=== PATIENT | male | born 1945 | race Caucasian/White ===

== ENCOUNTER 2017-09-25 07:03 | Day surgery (SDC) | payer MEDICARE ==
[~2017-09-25] VITALS: Ht 172.7 cm; Wt 109.8 kg
[~2017-09-25 07:03] MED LIST: AMIO200 PO; ASPI81CH PO; CHOL10002 PO; Coumadin2.5 MG PO; DILT120 PO; DOCU100 PO; DOXE150 PO; FLUV40 PO; HYDCHL25 PO; Hydrochlorothia25 MG PO; METO50 PO; Multivitamin1 EAC2 PO; NIFE30ER PO; Norco 5-325 Ta1 EACH PO; OXYACE5T PO; PROP60 PO; VALS80 PO; WARF2.5 PO; WARF3 PO
== END 2017-09-25 22:49 | disposition home or self-care (01) ==
LOC: ORSCMMR 07:03 → ORD 08:00 → ORSCMMR 08:00
PROVIDERS: Internal Medicine Gastroenterology
PROC: 0DJD8ZZ Inspection of Lower Intestinal Tract, Via Natural or Artificial Opening Endoscopic (ICD-10-PCS; principal; 2017-09-25 08:00)
DX: Z12.11 Encounter for screening for malignant neoplasm of colon (principal); Z86.010 Personal history of colon polyps; Z87.11 Personal history of peptic ulcer disease; Z80.0 Family history of malignant neoplasm of digestive organs; I48.0 Paroxysmal atrial fibrillation; I10 Essential (primary) hypertension; E78.00 Pure hypercholesterolemia, unspecified; Z79.01 Long term (current) use of anticoagulants; Z79.899 Other long term (current) drug therapy
CPT/HCPCS: J7120

== ENCOUNTER 2018-03-26 12:47 | Day surgery (SDC) | payer MEDICARE ==
[~2018-03-26] VITALS: Ht 200.7 cm; Wt 105.6 kg
--- NOTE | 2018-03-26 14:07 | NUR ---
03/26/18 1407 Taina Patel UNDER KNEES
--- NOTE | 2018-03-26 16:05 | NUR ---
03/26/18 1605 Belen Boyce LATE ENTRY: PT ARRIVED TO SDU DIRECTLY FROM OR DUE TO ISOLATION.
== END 2018-03-26 17:05 | disposition home or self-care (01) ==
LOC: ORSCSDS 12:47
PROVIDERS: Surgery
PROC: BF031ZZ Plain Radiography of Gallbladder and Bile Ducts using Low Osmolar Contrast (ICD-10-PCS; principal; 2018-03-26 14:00)
PROC: 0WUF0JZ Supplement Abdominal Wall with Synthetic Substitute, Open Approach (ICD-10-PCS; principal; 2018-03-26 14:00)
PROC: 0FT44ZZ Resection of Gallbladder, Percutaneous Endoscopic Approach (ICD-10-PCS; principal; 2018-03-26 14:00)
DX: K80.70 Calculus of gallbladder and bile duct without cholecystitis without obstruction (principal); K82.4 Cholesterolosis of gallbladder; K43.6 Other and unspecified ventral hernia with obstruction, without gangrene; I10 Essential (primary) hypertension; I25.10 Atherosclerotic heart disease of native coronary artery without angina pectoris; Z87.891 Personal history of nicotine dependence
CPT/HCPCS: 74300; 88304; C1729; C1781; J0690; J1100; J1885; J2250; J2405; J2765; J3010; J7120

== ENCOUNTER 2021-02-08 07:11 | Day surgery (SDC) | payer MEDICARE ==
[~2021-02-08] VITALS: Ht 195.6 cm; Wt 97.4 kg
[2021-02-08] MEDS ORDERED: AMIODARONE HCL100 M3 PO (07:51)
[2021-02-08 09:09] LABS: International Normalized Ratio 1.1; Prothrombin Time Results 11.5 Sec (9.7-11.5)
--- NOTE | 2021-02-08 10:07 | NUR ---
02/08/21 Horacio Navarrete RED MARKINGS NOTED ON RIGHT LOWER ABDOMEN PRE OPERATIVELY IN THE OR. AWARE, NO NEW ORDERS
--- NOTE | 2021-02-08 12:00 | NUR ---
PT ABLE TO DRESS INDEPENDETLY, DENIES PAIN OR NAUSEA, DRESSING TO R GROIN CDI. PT TOLERATING PO INTAKE. IV DC'D, DRESSING APPLIED. SITE WNL. D/C INSTRUCTIONS GIVEN, PT DENIES QUESTIONS. PT OUT TO CAR VIA WC W/ CAFE OR RESTAURANT MANAGER.
== END 2021-02-09 12:00 | disposition home or self-care (01) ==
LOC: ORSCMMR 07:11 → ORD 08:45 → ORSCMMR 02-09 12:00
PROVIDERS: Student in an Organized Health Care Education/Training Program; Surgery
PROC: 0YU50JZ Supplement Right Inguinal Region with Synthetic Substitute, Open Approach (ICD-10-PCS; principal; 2021-02-08 08:45)
DX: K40.90 Unilateral inguinal hernia, without obstruction or gangrene, not specified as recurrent (principal); I48.91 Unspecified atrial fibrillation; Z79.01 Long term (current) use of anticoagulants; I10 Essential (primary) hypertension; Z87.891 Personal history of nicotine dependence; K21.9 Gastro-esophageal reflux disease without esophagitis; N18.9 Chronic kidney disease, unspecified; Z86.73 Personal history of transient ischemic attack (TIA), and cerebral infarction without residual deficits; E11.9 Type 2 diabetes mellitus without complications; Z79.899 Other long term (current) drug therapy; Z85.46 Personal history of malignant neoplasm of prostate
CPT/HCPCS: 82947; 85610; C1781; J0690; J1100; J1885; J2370; J2405; J2704; J3010; J7120

== ENCOUNTER 2021-07-10 08:31 | Emergency (ER) | payer MEDICARE ==
[~2021-07-10] VITALS: Ht 203.2 cm; Wt 99.5 kg
[~2021-07-10 08:31] MED LIST changes: +AMIODARONE HCL100 M3 PO
== END 2021-07-10 09:33 | disposition home or self-care (01) ==
LOC: ER 08:31
DX: S80.871A Other superficial bite, right lower leg, initial encounter (principal); W57.XXXA Bitten or stung by nonvenomous insect and other nonvenomous arthropods, initial encounter; I48.91 Unspecified atrial fibrillation; N18.9 Chronic kidney disease, unspecified; Z79.01 Long term (current) use of anticoagulants; Z79.899 Other long term (current) drug therapy; Z87.891 Personal history of nicotine dependence
CPT/HCPCS: A9270

== ENCOUNTER → 2021-10-20 | Outpatient (CLI) | payer MEDICARE ==
[2021-10-20 17:49] LABS: BASOPHILS ABSOLUTE AUTO 0.06 K/mm3 (0.00-0.23); BASOPHILS PERCENT AUTO 1 % (0-2); EOSINOPHILS ABSOLUTE AUTO 0.11 K/mm3 (0.00-0.68); EOSINOPHILS PERCENT AUTO 2 % (0-6); Hematocrit 41.7 % (37.0-53.0); Hemoglobin 13.7 g/dL (13.5-17.5); IMMATURE GRAN ABSOLUTE AUTO 0.01 K/mm3 (0.00-0.10); IMMATURE GRAN PERCENT AUTO 0 % (0-1); LYMPHOCYTES ABSOLUTE AUTO 1.59 K/mm3 (0.84-5.20); LYMPHOCYTES PERCENT AUTO 30 % (21-46); MONOCYTES ABSOLUTE AUTO 0.57 K/mm3 (0.16-1.47); MONOCYTES PERCENT AUTO 11 % (4-13); Mean Corpuscular HGB 31.1 pg (26.0-34.0); Mean Corpuscular HGB Conc 32.9 g/dL (31.5-36.5); Mean Corpuscular Volume 95 fL (80-100); Mean Platelet Volume 12.8 fL (9.1-12.4); NEUTROPHILS ABSOLUTE AUTO 2.99 K/mm3 (1.96-9.15); NEUTROPHILS PERCENT AUTO 56 % (41-73); Platelet Count 144 K/mm3 (150-400); RDW Coefficient Variation 12.8 % (11.7-14.2); RDW Standard Deviation 45.1 fL (35.1-46.3); Red Blood Cell Count 4.41 M/mm3 (4.30-5.90); White Blood Cell Count 5.33 K/mm3 (4.00-11.30)
[2021-10-20 17:55] LABS: Alanine Aminotransfer (ALT/SGP 20 U/L (12-78); Albumin, Blood 3.8 g/dL (3.4-5.0); Albumin/Globulin Ratio 1.3 (0.8-1.8); Alk Phos 65 U/L (50-136); Anion Gap 4 mmol/L (6-16); Aspartate Aminotrans (AST/SGOT 17 U/L (12-37); Bilirubin, Total 1.8 mg/dL (0.1-1.0); Blood Urea Nitrogen 28 mg/dL (8-24); Bun/Creatinine Ratio 22.8 (12.0-20.0); CHOL/HDL RATIO 3.4; CO2, Blood 29 mmol/L (21-32); Calcium, Blood 9.7 mg/dL (8.5-10.1); Chloride, Blood 105 mmol/L (98-108); Cholesterol 186 mg/dL (50-200); Creatinine, Blood 1.23 mg/dL (0.60-1.20); Glomerular Filtration Rate 60 (60-); Glucose, Blood 105 mg/dL (70-99); HDL Cholesterol 54 mg/dL (>39); LDL/HDL RATIO 2.1; Low Density Lipoprotein Chol 112 mg/dL (0-110); Potassium, Blood 4.1 mmol/L (3.5-5.5); Sodium, Blood 138 mmol/L (136-145); Total Protein, Blood 6.8 g/dL (6.4-8.2); Triglycerides 100 mg/dL (30-160); Very Low Density Lipoprot Chol 20 mg/dL (6-32)
== END | disposition home or self-care (01) ==
LOC: LAB SHORT 13:28 → LAB 13:28
PROVIDERS: Nurse Practitioner Family
DX: I10 Essential (primary) hypertension (principal); E78.00 Pure hypercholesterolemia, unspecified; R73.03 Prediabetes
CPT/HCPCS: 80053; 80061; 83036; 85025

== ENCOUNTER → 2022-06-04 | Outpatient (CLI) | payer MEDICARE | END | disposition home or self-care (01) | LOC: LAB 11:44 → LAB SHORT 11:44 | DX: D48.5 Neoplasm of uncertain behavior of skin (principal) | CPT/HCPCS: 88305 ==

== ENCOUNTER 2022-12-20 17:15 | Emergency (ER) | payer MEDICARE ==
[~2022-12-20] VITALS: Ht 200.7 cm; Wt 96.6 kg
[2022-12-20 17:23] VITALS: BP 140/97
[2022-12-20 18:08] LABS: BASOPHILS ABSOLUTE AUTO 0.06 K/mm3 (0.00-0.23); BASOPHILS PERCENT AUTO 1 % (0-2); EOSINOPHILS ABSOLUTE AUTO 0.15 K/mm3 (0.00-0.68); EOSINOPHILS PERCENT AUTO 2 % (0-6); Hemoglobin 13.8 g/dL (13.5-17.5); IMMATURE GRAN ABSOLUTE AUTO 0.01 K/mm3 (0.00-0.10); IMMATURE GRAN PERCENT AUTO 0 % (0-1); LYMPHOCYTES ABSOLUTE AUTO 1.99 K/mm3 (0.84-5.20); LYMPHOCYTES PERCENT AUTO 28 % (21-46); MONOCYTES ABSOLUTE AUTO 0.75 K/mm3 (0.16-1.47); MONOCYTES PERCENT AUTO 11 % (4-13); Mean Corpuscular HGB 31.9 pg (26.0-34.0); Mean Corpuscular HGB Conc 34.5 g/dL (31.5-36.5); Mean Corpuscular Volume 93 fL (80-100); Mean Platelet Volume 10.2 fL (9.1-12.4); NEUTROPHILS ABSOLUTE AUTO 4.16 K/mm3 (1.96-9.15); NEUTROPHILS PERCENT AUTO 59 % (41-73); Platelet Count 158 K/mm3 (150-400); RDW Coefficient Variation 12.8 % (11.7-14.2); RDW Standard Deviation 43.2 fL (35.1-46.3); Red Blood Cell Count 4.32 M/mm3 (4.30-5.90); White Blood Cell Count 7.12 K/mm3 (4.00-11.30)
[2022-12-20 18:24] LABS: Albumin, Blood 3.8 g/dL (3.4-5.0); Albumin/Globulin Ratio 1.1 (0.8-1.8); Bilirubin, Total 1.4 mg/dL (0.1-1.0); Bun/Creatinine Ratio 18.9 (12.0-20.0); Calcium, Blood 9.4 mg/dL (8.5-10.1); Creatinine, Blood 1.32 mg/dL (0.60-1.20); Globulin, Blood 3.4 g/dL (2.2-4.0); Potassium, Blood 3.8 mmol/L (3.5-5.5); Total Protein, Blood 7.2 g/dL (6.4-8.2)
== END 2022-12-20 19:53 | disposition home or self-care (01) ==
LOC: ER 17:15
PROVIDERS: Student in an Organized Health Care Education/Training Program
DX: M79.662 Pain in left lower leg (principal); I48.91 Unspecified atrial fibrillation; N18.9 Chronic kidney disease, unspecified; Z79.899 Other long term (current) drug therapy; Z79.01 Long term (current) use of anticoagulants; Z87.891 Personal history of nicotine dependence
CPT/HCPCS: 80053; 85025; 85730; 93971; 99283-25

== ENCOUNTER 2024-05-18 07:19 | Inpatient (IN) | payer MEDICARE ==
[~2024-05-18] VITALS: Ht 188 cm; Wt 86.2 kg
[2024-05-18] VITALS (12 sets, daily range): BP systolic 100–131; BP diastolic 50–85
[~2024-05-18 07:19] MED LIST changes: -AMIODARONE HCL100 M3 PO; +Amiodarone HCl200 MG PO
[2024-05-18] MEDS ORDERED: NS 1,000 ML IV SCH (10:25)
[2024-05-18] MEDS ORDERED: Morphine Sulfate 4 MG/1 ML Injection IV ONE ×2 (10:25→12:50)
[2024-05-18 10:53] LABS: BASOPHILS ABSOLUTE AUTO 0.02 K/mm3 (0.00-0.23); BASOPHILS PERCENT AUTO 0 % (0-2); EOSINOPHILS ABSOLUTE AUTO 0.01 K/mm3 (0.00-0.68); EOSINOPHILS PERCENT AUTO 0 % (0-6); Hematocrit 37.2 % (37.0-53.0); Hemoglobin 12.8 g/dL (13.5-17.5); IMMATURE GRAN ABSOLUTE AUTO 0.02 K/mm3 (0.00-0.10); IMMATURE GRAN PERCENT AUTO 0 % (0-1); LYMPHOCYTES ABSOLUTE AUTO 0.64 K/mm3 (0.84-5.20); LYMPHOCYTES PERCENT AUTO 7 % (21-46); MONOCYTES ABSOLUTE AUTO 0.82 K/mm3 (0.16-1.47); MONOCYTES PERCENT AUTO 9 % (4-13); Mean Corpuscular HGB 31.8 pg (26.0-34.0); Mean Corpuscular HGB Conc 34.4 g/dL (31.5-36.5); Mean Corpuscular Volume 92 fL (80-100); Mean Platelet Volume 9.7 fL (9.1-12.4); NEUTROPHILS ABSOLUTE AUTO 7.89 K/mm3 (1.96-9.15); NEUTROPHILS PERCENT AUTO 84 % (41-73); Platelet Count 177 K/mm3 (150-400); RDW Coefficient Variation 13.2 % (11.7-14.2); RDW Standard Deviation 44.8 fL (35.1-46.3); Red Blood Cell Count 4.03 M/mm3 (4.30-5.90)
[2024-05-18 11:00] LABS: International Normalized Ratio 1.2; Prothrombin Time Results 12.7 Sec (9.7-11.5)
[2024-05-18 11:13] LABS: Albumin, Blood 3.3 g/dL (3.4-5.0); Bilirubin, Total 2.3 mg/dL (0.1-1.0); Calcium, Blood 9.4 mg/dL (8.5-10.1); Creatinine, Blood 1.09 mg/dL (0.60-1.20); Globulin, Blood 3.2 g/dL (2.2-4.0); Potassium, Blood 3.3 mmol/L (3.5-5.5); Total Protein, Blood 6.5 g/dL (6.4-8.2)
[2024-05-18] MEDS ORDERED: Piperacillin/Tazobactam Sod 3.375 GM in NS 100 ML IV ONE (11:35)
[2024-05-18 12:22] LABS: Source, Urine Clean Catch
[2024-05-18 12:29] LABS: Appearance, Urine Clear (Clear); Bilirubin, Urine Neg (Neg); Blood, Urine 1+ (Neg); Color, Urine Yellow (P-Yellow); Glucose Qualitative, Urine Neg (Neg); Ketones, Urine Neg (Neg); Leukocyte Esterase, Urine Neg (Neg); Nitrite, Urine Neg (Neg); Protein, Urine 2+ (Neg); Specific Gravity, Urine 1.015 (1.003-1.022); Urobilinogen, Urine 2+ (Normal)
[2024-05-18] MEDS ORDERED: Famotidine 10 MG/ML 2ML Vial IV ONE (12:35)
[2024-05-18] MEDS ORDERED: FentaNYL Citrate 50 MCG/ML 2 ML Injection IV ONE (13:10)
[2024-05-18 13:46] LABS: Bacteria Not Seen /hpf; Red Blood Cells, Urine 0-2 /hpf (0-2); Squamous Epithelial Cells Not Seen /hpf (Few); White Blood Cells, Urine 0-2 /hpf (0-5)
[2024-05-18] MEDS ORDERED: NS KCl 20mEq 1,000 ML IV SCH (13:50)
[2024-05-18] MEDS ORDERED: Bupivacaine 0.5% HCl 5 MG/ML 30MLVIAL ONE (14:12)
--- NOTE | 2024-05-18 14:40 | NUR ---
PT RECENTLY HERE BY GARRETT FROM ER. Patient confirms NPO status and agrees with scheduled surgery. History, Chart, Medications and Allergies reviewed before start of procedure.Pre-Op teaching done. Pt verbalizes understanding. Lungs clear T/O to Auscultation.
[2024-05-18] MEDS ORDERED: HYDROmorphone HCl/Pf 1MG SYR IV PRN (14:55)
[2024-05-18] MEDS ORDERED: Morphine Sulfate 4 MG/1 ML Injection IV PRN (14:55)
[2024-05-18] MEDS ORDERED: Lactated Ringer's 1,000 ML IV SCH (15:00)
[2024-05-18] MEDS ORDERED: Ondansetron HCl 2 MG / ML 2ML Vial IV PRN (15:00)
[2024-05-18] MEDS ORDERED: FentaNYL Citrate 50 MCG/ML 2 ML Injection IV PRN ×3 (15:00→16:40)
[2024-05-18] MEDS ORDERED: Lidocaine HCl 1% 5 ML SYR INJ ONE (15:00)
[2024-05-18] MEDS ORDERED: propofoL 20 ML IV ONE (15:06)
[2024-05-18] MEDS ORDERED: FentaNYL Citrate 50 MCG/ML 2 ML Injection ONE (15:07)
[2024-05-18] MEDS ORDERED: Rocuronium Bromide 10 MG/ML 5ML Injection IV ONE (15:12)
[2024-05-18] MEDS ORDERED: Phenylephrine HCl 100 MCG/ML-NS 10MLSYR (1MG/10ML) ONE (15:12)
[2024-05-18] MEDS ORDERED: SuccINYLCHOLINE Chloride 100 MG/5 ML 5MLSYR ONE (15:12)
[2024-05-18] MEDS ORDERED: Ondansetron HCl 2 MG / ML 2ML Vial ONE (15:13)
[2024-05-18] MEDS ORDERED: Dexamethasone Sod Phos 10 MG/ML 1ML VIAL ONE (15:13)
--- NOTE | 2024-05-18 15:14 | NUR ---
PT GLASSES TO PACU IN SMALL BAG WITH NAME TAG ON IT.
[2024-05-18] MEDS ORDERED: Phenylephrine HCl 10mg/ml 1 ml Vial ONE (15:19)
[2024-05-18] MEDS ORDERED: ePHEDrine Sulfate 50 MG/ML 1ML Injection ONE (15:27)
[2024-05-18] MEDS ORDERED: Sugammadex Sodium 200 MG/2ML SDV (100 MG/ML) ONE (16:03)
[2024-05-18] MEDS ORDERED: HYDROcodone 5-APAP 325 TAB PO PRN (16:40)
[2024-05-18] MEDS ORDERED: Piperacillin/Tazobactam Sod 3.375 GM in NS 100 ML IV SCH (18:00)
[2024-05-18] MEDS ORDERED: Warfarin Sodium 1 MG Tab PO ONE (18:50)
--- NOTE | 2024-05-18 19:21 | NUR ---
POST OP/SHIFT SUMMARY PT IS POD0 FOR LAP APPY. A/OX4, PT IS DROWSY STILL FROM ANESTHESIA, EDUCATED PT TO CALL FOR ASSISTANCE W/ AMBULATION AND PT AGREES. LAP SITES X3 C/D/I. PT HAS VOIDED POST OP. DENIES PAIN/NAUSEA. TOLERATING SNACKS AND FLUIDS. VSS. 2LNC. CALL LIGHT IN REACH, REPORT TO JOSEPHINE MO.
[2024-05-18] MEDS ORDERED: Propranolol HCL 60 MG CAPCR PO SCH (21:00)
[2024-05-18] MEDS ORDERED: Docusate Sodium 100 MG Cap PO SCH (21:00)
[2024-05-18] MEDS ORDERED: Amiodarone HCl 200 MG Tab PO SCH (21:00)
[2024-05-19 04:10] VITALS: BP 107/72
[2024-05-19 04:29] LABS: Hematocrit 33.5 % (37.0-53.0); Hemoglobin 11.3 g/dL (13.5-17.5); Mean Corpuscular HGB 32.5 pg (26.0-34.0); Mean Corpuscular HGB Conc 33.7 g/dL (31.5-36.5); Mean Corpuscular Volume 96 fL (80-100); Platelet Count 159 K/mm3 (150-400); RDW Coefficient Variation 13.7 % (11.7-14.2); RDW Standard Deviation 48.5 fL (35.1-46.3); Red Blood Cell Count 3.48 M/mm3 (4.30-5.90); White Blood Cell Count 13.46 K/mm3 (4.00-11.30)
[2024-05-19 04:49] LABS: International Normalized Ratio 1.34
[2024-05-19 05:12] LABS: Bun/Creatinine Ratio 22.3 (12.0-20.0); Calcium, Blood 8.4 mg/dL (8.5-10.1); Creatinine, Blood 1.12 mg/dL (0.60-1.20); Potassium, Blood 3.7 mmol/L (3.5-5.5)
--- NOTE | 2024-05-19 05:29 | NUR ---
SHIFT SUMMARY NOC PT A/O X 4. PLEASANT AND COOPERATIVE WITH CARE. POST OP VSS. PT POST OP DAY 1 APPENDECTOMY WITH 3 LAP SITES WITH STER STRIPS IN PLACE C/D/I. PT HAD C/O OF PAIN X 1 AND MEDICATED PER EMAR. PT GIVEN FIRST DOSE OF WARFARIN AT BEDTIME. PT HAS NS KCL 29 MEQ INFUSING @ 100 ML/HR FOR ELECTROLYTE REPLACEMENT AND IV ABX. PT USING BEDSIDE URINAL INDEPENDENTLY. PT CURRENTLY RESTING WITH BED IN LOWEST POSITION, AND CALL LIGHT WITHIN REACH.
[2024-05-19 07:12] VITALS: BP 103/70
[2024-05-19] MEDS ORDERED: Multivitamins 1 Tab PO SCH (09:00)
[2024-05-19] MEDS ORDERED: HydroCHLOROthiazide 25 mg Tab PO SCH (09:00)
[2024-05-19] MEDS ORDERED: Losartan Potassium 50 MG Tab PO SCH (09:00)
[2024-05-19] MEDS ORDERED: Warfarin Sodium 2.5 MG Tab PO SCH (09:00)
[2024-05-19] MEDS ORDERED: Propranolol HCL 60 MG CAPCR PO SCH (09:00)
[2024-05-19] MEDS ORDERED: Amiodarone HCl 200 MG Tab PO SCH (09:00)
[2024-05-19] MEDS ORDERED: Polyethylene Glycol 3350 17 gm PO SCH (09:00)
[2024-05-19] MEDS ORDERED: JANTOVEN1 M2 PO (11:50)
[2024-05-19] MEDS ORDERED: TAMSULOSIN HCL0.4 M1 PO (11:50)
[2024-05-19] MEDS ORDERED: AMLODIPINE BESY10 MG PO (11:50)
[2024-05-19 15:32] VITALS: BP 119/83
[2024-05-19] MEDS ORDERED: Tamsulosin HCl 0.4 MG Cap PO ONE (17:00)
[2024-05-19] MEDS ORDERED: Sod Phosphate/Sod Biphosphate 132 ML BTL PR PRN (17:05)
[2024-05-19] MEDS ORDERED: Polyethylene Glycol 3350 17 gm PO PRN (17:15)
[2024-05-19] MEDS ORDERED: Warfarin Sodium 1 MG Tab PO SCH ×2 (18:00)
[2024-05-19] MEDS ORDERED: Warfarin Sodium 2 MG Tab PO SCH (18:00)
--- NOTE | 2024-05-19 18:22 | NUR ---
SHIFT SUMMARY PT IS POD1 FOR LAP APPY. A/OX4, IND IN ROOM. PAIN MANAGEABLE W/ PAIN MEDS PER EMAR. TOLERATING FLUIDS AND REG DIET. URINE IS PINK TINGED AND CLOUDY, DR. MEEKS AWARE AND ORDERED PT'S HOME FLOMAX. VSS. RA. DRESSINGS C/D/I. PT RESTING IN BED W/ CALL LIGHT IN REACH AND FRIEND AT BEDSIDE.
[2024-05-19 18:53] VITALS: BP 103/72
--- NOTE | 2024-05-19 19:38 | NUR ---
PT REFUSED 2MG OF WARFARIN, WOULD ONLY TAKE 1MG HE ONLY TAKES 1-1.25MG OF WARFARIN AT HOME DUE TO "HX OF BLEEDING". STATES HIS IT ARCHITECTURE CONSULTANT IS OK W/ THIS DOSAGE AT HOME. EDUCATED PT THAT HIS INR IS OUTSIDE OF THERAPEUTIC RANGE AND CALLS FOR 2MG, PT CONTINUED TO REFUSE AND TOOK 1MG. BUZZ LENTZ NOTIFIED.
[2024-05-19] MEDS ORDERED: Docusate Sodium/Senna 1 Tab PO SCH (21:00)
[2024-05-20 04:39] VITALS: BP 108/76
--- NOTE | 2024-05-20 05:46 | NUR ---
SHIFT SUMMARY A&OX4, PLEASANT AND COOPERATIVE WITH CARE. USES CALL LIGHT APPROP. MAKES NEEDS KNOWN. SCHEDULED MEDICATIONS GIVEN ORDERED AND PRN MEDS GIVEN NEEDED. PT WENT TO CT AT START OF SHIFT AND RETURNED BACK TO ROOM 2135. INC WITH SKIN GLUE AND STERI-STRIPS CLOSED WITH NO DRAINAGE. NO ACUTE CHANGES T/O NOC. PT IS CONSTANTLY WORRIED ABOUT HAVING A BM. GAVE HIM PRN MIRILAX LAST NIGHT. WILL GIVE REPORT TO ONCOMING RN TAKING PATIENT.
[2024-05-20 05:56] LABS: Hematocrit 38.4 % (37.0-53.0); Hemoglobin 12.4 g/dL (13.5-17.5); Mean Corpuscular HGB 31.3 pg (26.0-34.0); Mean Corpuscular HGB Conc 32.3 g/dL (31.5-36.5); Mean Corpuscular Volume 97 fL (80-100); Mean Platelet Volume 10.4 fL (9.1-12.4); Platelet Count 203 K/mm3 (150-400); RDW Coefficient Variation 13.8 % (11.7-14.2); Red Blood Cell Count 3.96 M/mm3 (4.30-5.90); White Blood Cell Count 14.68 K/mm3 (4.00-11.30)
[2024-05-20 06:04] LABS: International Normalized Ratio 1.3; Prothrombin Time Results 13.6 Sec (9.7-11.5)
[2024-05-20 06:19] LABS: BAND PERCENT MAN 12 % (0-8); BASOPHILS PERCENT MAN 0 % (0-2); EOSINOPHILS ABSOLUTE MAN 0.14 K/mm3 (0.00-0.68); EOSINOPHILS PERCENT MAN 1 % (0-6); LYMPHOCYTES ABSOLUTE MAN 0.88 K/mm3 (0.84-5.20); LYMPHOCYTES PERCENT MAN 6 % (21-46); MONOCYTES ABSOLUTE MAN 0.73 K/mm3 (0.16-1.47); MONOCYTES PERCENT MAN 5 % (4-13); NEUTROPHILS ABSOLUTE MAN 12.91 K/mm3 (1.96-9.15); SEG NEUTROPHILS PERCENT MAN 76 % (41-73); TOTAL CELLS COUNTED 100
[2024-05-20 07:14] VITALS: BP 103/72
[2024-05-20] MEDS ORDERED: NS 250 ML IV PRN (11:55)
[2024-05-20 14:41] VITALS: BP 88/62
[2024-05-20 14:42] VITALS: BP 97/55
--- NOTE | 2024-05-20 16:21 | NUR ---
SUMMARY PATIENT AOX4, SBA TO INDEP IN ROOM, USES CAN IN [place]EL[place]AR. LAP SITES ARE C/D/I. TOLERATING PO INTAKE. REPORTS PASSING GAS, NO BM. AWAITING DC HOME. VSS. NO ACUTE EVENTS.
[2024-05-20] MEDS ORDERED: Sod Phosphate/Sod Biphosphate 132 ML BTL PR ONE (17:45)
[2024-05-20] MEDS ORDERED: Warfarin Sodium 1 MG Tab PO SCH (18:00)
[2024-05-20 20:10] VITALS: BP 129/74
[2024-05-21 04:07] VITALS: BP 120/76
--- NOTE | 2024-05-21 05:48 | NUR ---
SHIFT SUMMARY PATIENT WAS SUCCESSFUL AFTER GIVING HIMSELF A FLEETS ENEMA AT START OF SHIFT. PATIENT REPORTS EXTRA LARGE BM. REFUSED SENNA TONIGHT. PATIENT EXPECTING TO GO HOME TODAY. IV SL. SCHEDULED MEDS GIVEN ORDERED AND PRN GIVEN NEEDED. PATIENT RESTED WELL T/O NOC WITH NO ACUTE CHANGES. WILL GIVE REPORT TO ONCOMING RN TAKING PT.
[2024-05-21 07:24] LABS: International Normalized Ratio 1.33; Prothrombin Time Results 13.9 Sec (9.7-11.5)
[2024-05-21 07:25] VITALS: BP 122/73
[2024-05-21] MEDS ORDERED: DOCUZEN 8.6-501 EACH PO (11:55)
[2024-05-21] MEDS ORDERED: Norco 5-325 Ta1 EACH PO (11:55)
[2024-05-21] MEDS ORDERED: MIRALAX17 GM PO (11:56)
--- NOTE | 2024-05-21 12:24 | NUR ---
DISCHARGE PAIN WELL CONTROLLED. EATING, DRINKING, & VOIDING WELL. PASSING GAS & BM LAST HS. SCRIPT SENT w/ PT. ESCORTED OUT VIA W/C.
== END 2024-05-21 12:25 | disposition home or self-care (01) | DRG 330 ==
LOC: ER 07:19 → ERHOLD 07:20 → SURS 07:20 → ERHOLD 07:21 → ER 13:46 → ERHOLD 13:46 → SURS 17:36
PROVIDERS: Student in an Organized Health Care Education/Training Program; Surgery; ADMIT Internal Medicine
PROC: 0DBH4ZZ Excision of Cecum, Percutaneous Endoscopic Approach (ICD-10-PCS; principal; 2024-05-18 14:30)
DX: K35.31 Acute appendicitis with localized peritonitis and gangrene, without perforation (principal); I48.20 Chronic atrial fibrillation, unspecified; I35.0 Nonrheumatic aortic (valve) stenosis; N18.9 Chronic kidney disease, unspecified; I12.9 Hypertensive chronic kidney disease with stage 1 through stage 4 chronic kidney disease, or unspecified chronic kidney disease; I45.10 Unspecified right bundle-branch block; E86.0 Dehydration; Z96.652 Presence of left artificial knee joint; K59.09 Other constipation; K21.9 Gastro-esophageal reflux disease without esophagitis; Z96.669 Presence of unspecified artificial ankle joint; E87.6 Hypokalemia; N28.89 Other specified disorders of kidney and ureter; E11.22 Type 2 diabetes mellitus with diabetic chronic kidney disease; E78.5 Hyperlipidemia, unspecified; M19.90 Unspecified osteoarthritis, unspecified site; I11.9 Hypertensive heart disease without heart failure; Z79.899 Other long term (current) drug therapy; Z87.19 Personal history of other diseases of the digestive system; Z85.46 Personal history of malignant neoplasm of prostate; Z95.2 Presence of prosthetic heart valve; Z98.890 Other specified postprocedural states; Z87.891 Personal history of nicotine dependence; Z79.01 Long term (current) use of anticoagulants; Z86.73 Personal history of transient ischemic attack (TIA), and cerebral infarction without residual deficits
CPT/HCPCS: 36415; 74170; 74177; 80048; 80053; 81001; 83690; 85007; 85025; 85027; 85610; 88304; 93005; 93010; 94760; 96361; 96374-59; 96375; 96376; 99285-25; A9270; J0330; J1100; J2270; J2371; J2405; J2543; J2704; J3010; J3480; J7030; J7050; J7120; Q9967

== ENCOUNTER 2024-09-25 06:08 | Day surgery (SDC) | payer MEDICARE ==
[2024-09-25] VITALS (14 sets, daily range): BP systolic 109–141; BP diastolic 73–93
[~2024-09-25] VITALS: Ht 198.1 cm; Wt 93.0 kg
[~2024-09-25 06:08] MED LIST changes: +AMLODIPINE BESY10 MG PO; +CRANBERRY500 M1 PO; +DOCUZEN 8.6-501 EACH PO; +JANTOVEN1 M2 PO; +MIRALAX17 GM PO; +TAMSULOSIN HCL0.4 M1 PO
[2024-09-25] MEDS ORDERED: NS 2,000 ML IV ONE (06:25)
[2024-09-25] MEDS ORDERED: NS 1,000 ML IV ONE (06:36)
[2024-09-25] MEDS ORDERED: Naloxone HCl 0.4MG / ML 1ML Vial ONE (06:36)
[2024-09-25] MEDS ORDERED: FentaNYL Citrate 50 MCG/ML 2 ML Injection ONE (06:36)
[2024-09-25] MEDS ORDERED: Midazolam HCl 1MG / ML 2ML Vial ONE (06:36)
[2024-09-25] MEDS ORDERED: Flumazenil 0.1 MG / ML 5ML Vial ONE (06:36)
== END 2024-09-25 15:06 | disposition home or self-care (01) ==
LOC: MHTC 06:08
DX: N28.89 Other specified disorders of kidney and ureter (principal); I48.91 Unspecified atrial fibrillation; I12.9 Hypertensive chronic kidney disease with stage 1 through stage 4 chronic kidney disease, or unspecified chronic kidney disease; N18.9 Chronic kidney disease, unspecified; Z79.01 Long term (current) use of anticoagulants; Z79.899 Other long term (current) drug therapy; Z98.52 Vasectomy status
CPT/HCPCS: 50593; 74150; 77013; 99152; 99153; C2618; J2250; J2312; J3010; J7030; Q9967